=== PATIENT | male | born 1965 | race Two or more races ===

== ENCOUNTER 2025-04-14 23:58 | Emergency (ER) | payer MEDICAID, OTHER ==
[~2025-04-14] VITALS: Ht 180.3 cm; Wt 85.7 kg
[2025-04-15] MEDS ORDERED: ACET500T58 PO (02:42)
[2025-04-15] MEDS ORDERED: IBUP-1455 PO (02:42)
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
[2025-04-15] MEDS: KETOROLAC TROMETH 60MG/2ML VIAL IM ONE (02:59)
[2025-04-15 03:00] VITALS: BP 142/92; TEMP 97.7
[2025-04-15 03:05] VITALS: PULSE 72; RESP 18; O2SAT 98
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
== END 2025-04-15 03:12 | disposition home or self-care (01) ==
LOC: ER 23:58
DX: S39.012A Strain of muscle, fascia and tendon of lower back, initial encounter (principal); S22.31XA Fracture of one rib, right side, initial encounter for closed fracture; V43.52XA Car driver injured in collision with other type car in traffic accident, initial encounter; S30.0XXA Contusion of lower back and pelvis, initial encounter; S20.20XA Contusion of thorax, unspecified, initial encounter; V89.2XXA Person injured in unspecified motor-vehicle accident, traffic, initial encounter; Y93.89 Activity, other specified; Y92.89 Other specified places as the place of occurrence of the external cause; Y99.8 Other external cause status
CPT/HCPCS: 71111; 72100; 73030; 96372; 99284; J1885